=== PATIENT | male | born 1975 | race Caucasian/White ===

== ENCOUNTER 2018-11-09 11:37 | Emergency (ER) | payer OTHER, MEDICARE ==
[~2018-11-09] VITALS: Ht 177.8 cm; Wt 99.8 kg
[2018-11-09 11:41] VITALS: BP_SYST 176
[2018-11-09] MEDS ORDERED: NACL 0.9% 1,000 ML IV ONE (11:44)
[2018-11-09] MEDS ORDERED: LORazepam 2 MG/ML VIAL (FOR ER USE) IVP ONE (11:45)
[2018-11-09] MEDS ORDERED: PROMETHAZINE HCL 25 MG/ML AMP IVP ONE (11:45)
[2018-11-09 12:25] VITALS: BP_SYST 176
[2018-11-09 12:44] LABS: BASOPHILS % (AUTO) 0.6 % (0.0-2.0); EOSINOPHILS # (AUTO) 0.1 K/uL (0.0-0.4); EOSINOPHILS % (AUTO) 1.7 % (0.0-4.0); HEMATOCRIT 42.8 % (36-54); HEMOGLOBIN 12.4 g/dL (14.0-18.0); LYMPHOCYTES # (AUTO) 1.4 K/uL (1.0-5.5); LYMPHOCYTES % (AUTO) 24.7 % (20.5-51.5); MEAN CORPUSCULAR HEMOGLOBIN 20 pg (27-31); MEAN CORPUSCULAR HGB CONC 29 % (32-36); MEAN CORPUSCULAR VOLUME 69 fL (79.0-98.0); MONOCYTES # (AUTO) 0.4 K/uL (0.0-1.0); MONOCYTES % (AUTO) 7.5 % (1.7-9.3); NEUTROPHILS % (AUTO) 65.5 % (40.0-70.0); PLATELET COUNT (AUTO) 259 K/uL (130-430); RED CELL DISTRIBUTION WIDTH 19.7 % (9.0-15.0)
[2018-11-09 12:47] LABS: INR 1.4 (0.80-1.20); PROTHROMBIN TIME 13.7 SECS (9.5-12.5)
[2018-11-09 12:48] LABS: CALCIUM 8.9 mg/dL (8.4-11.0); CREATININE 1.39 mg/dL (0.55-1.30); POTASSIUM 3.8 mmol/L (3.5-5.1)
[2018-11-09 12:52] LABS: ALBUMIN 3.5 g/dL (3.4-4.8); TOTAL BILIRUBIN 0.3 mg/dL (0.0-1.0)
[2018-11-09 12:54] LABS: WHITE BLOOD COUNT (AUTO) 5.9 K/uL (4.8-10.8)
== END 2018-11-09 12:25 | disposition home or self-care (01) ==
LOC: SED 11:37
DX: F45.8 Other somatoform disorders (principal); R09.89 Other specified symptoms and signs involving the circulatory and respiratory systems; R03.0 Elevated blood-pressure reading, without diagnosis of hypertension; Z85.79 Personal history of other malignant neoplasms of lymphoid, hematopoietic and related tissues
CPT/HCPCS: 36415; 80053; 83690; 85025; 85610; 85730; 99283; J2060; J7030; J2550